=== PATIENT | male | born 1975 | race American Indian/Alaskan Native ===

== ENCOUNTER 2016-07-03 15:58 | Emergency (ER) | payer OTHER, MEDICAID ==
[2016-07-03 16:29] VITALS: BMI 30.7
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
[2016-07-03 18:22] VITALS: BP 134/93; PULSE 65; RESP 16; TEMP 97.8; O2SAT 97
--- NOTE | 2016-07-04 12:13 | CARD ---
APPROVED REPORT EKG Measurement Heart [id number] <Conclusion> Normal sinus rhythm Normal ECG
== END 2016-07-03 18:25 | disposition home or self-care (01) ==
LOC: C.ER 15:58
DX: S33.5XXA Sprain of ligaments of lumbar spine, initial encounter (principal); S20.219A Contusion of unspecified front wall of thorax, initial encounter; V43.52XA Car driver injured in collision with other type car in traffic accident, initial encounter; Y92.414 Local residential or business street as the place of occurrence of the external cause

== ENCOUNTER 2017-01-07 12:09 | Emergency (ER) | payer MEDICAID, OTHER ==
[2017-01-07 12:09] VITALS: BMI 30.7
[2017-01-07 12:22] VITALS: BP 143/90; PULSE 80; RESP 18; TEMP 98; O2SAT 96
[2017-01-07] MEDS ORDERED: Naproxen 550 mg Tab PO STA (13:07)
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
[2017-01-07] MEDS ORDERED: Naproxen 550 mg Tab PO ONE (14:18)
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
== END 2017-01-07 14:18 | disposition home or self-care (01) ==
LOC: C.ER 12:09
DX: R07.9 Chest pain, unspecified (principal); V89.2XXA Person injured in unspecified motor-vehicle accident, traffic, initial encounter